=== PATIENT | female | born 1985 | race Two or more races ===

== ENCOUNTER 2020-07-06 19:09 | Emergency (ER) | payer OTHER ==
[~2020-07-06] VITALS: Ht 162.6 cm; Wt 63.6 kg
[2020-07-06 19:51] VITALS: BP 127/79
[2020-07-06] MEDS ORDERED: IBUPROFEN 600 MG TABLET PO ONE (20:30)
== END 2020-07-06 21:17 | disposition home or self-care (01) ==
LOC: EMS 19:09
DX: S13.4XXA Sprain of ligaments of cervical spine, initial encounter (principal); V43.52XA Car driver injured in collision with other type car in traffic accident, initial encounter; Y93.89 Activity, other specified; Y92.488 Other paved roadways as the place of occurrence of the external cause; Y99.8 Other external cause status
CPT/HCPCS: Z7502; Z7610